=== PATIENT | male | born 1960 | race Caucasian/White ===

== ENCOUNTER 2017-06-07 21:12 | Observation (INO) | payer OTHER ==
--- NOTE | 2017-06-07 21:21 | Emergency Department Record ---
History of Present Illness - General Chief Complaint: Chest Pain Stated Complaint: CHEST PAIN,JAW PAIN Time Seen by Provider: 06/07/17 21:13 Source: Patient Mode of Arrival: Ambulatory Limitations: No limitations - History of Present Illness Initial Comments: 57 yo male presents with tightnes of the chest. The tightness radiated to the neck /throat area. The feeling is currently gone. The tightness came on at rest tonight. It initially started around 8pm. He felt a little nausea and mild shortness of breath. No back pain. No leg edema. He had similar symptoms that were brief on Tuesday. No know CAD. He had a stress test many years ago. His sister of an [place] at 42. He has HTN and diet controlled elevated cholesterol due to not able to tolerated cholesterol medications. PCP Kelly. CHAVEZ Complaint: Chest pain -: Hour(s) Onset: During rest Pain Location: Substernal Pain Radiation: Jaw/teeth Quality: Tightness Consistency: Intermittent Improves With: Rest Worsens With: Nothing Anginal Symptoms: Dyspnea Treatments Prior to Arrival: None - Related Data Allergies Allergy/AdvReac Type Severity Reaction Status Date / Time No Known Allergies Allergy Unverified 06/24/16 19:13 Review of Systems Constitutional: Denies: Chills, Night sweats, Weakness Eyes: Denies: Eye discharge, Eye pain, Photophobia, Vision change ENT: Reports: Throat pain. Denies: Congestion, Dental pain, Ear pain, Epistaxis Respiratory: Denies: Cough, Dyspnea, Hemoptysis, Stridor, Wheezes Cardiovascular: Reports: Chest pain (tightness). Denies: Edema, Palpitations, Syncope Endocrine: Denies: Fatigue, Polydipsia, Polyuria Gastrointestinal: Denies: Abdominal pain, Diarrhea, Nausea, Vomiting Genitourinary: Denies: Dysuria, Frequency, Hematuria, Urgency Musculoskeletal: Denies: Arthralgia, Back pain, Joint swelling, Myalgia, Neck pain Skin: Denies: Bruising, Change in color, Rash Neurological: Denies: Confusion, Headache, Numbness, Weakness Psychiatric: Reports: Anxiety Hematological/Lymphatic: Denies: Blood Clots, Easy bleeding, Easy bruising, Swollen glands Past Medical History - SOCIAL HISTORY Smoking Status: Never smoker - RESPIRATORY Hx Respiratory Disorders: Yes Hx Bronchitis: Yes - CARDIOVASCULAR Hx Cardio Disorders: No Hx Hypertension: Yes - NEURO Hx Neuro Disorders: No - GI Hx Diverticulitis: Yes - Hx Genitourinary Disorders: No - ENDOCRINE Hx Endocrine Disorders: No Hx Diabetes: No Hx Thyroid Disease: No - MUSCULOSKELETAL Hx Musculoskeletal Disorders: No - PSYCH Hx Anxiety: Yes - HEMATOLOGY/ONCOLOGY Hx Hematology/Oncology Disorders: No Family Medical History Hx Cancer: Father, Mother Hx Diabetes: Mother Hx HTN: Father Physical Exam - General General Appearance: Alert, Oriented x3, Cooperative, No acute distress Limitations: No limitations - Head Head exam: Normal inspection - Eye Eye exam: Normal appearance, PERRL. negative: Conjunctival injection, Scleral icterus - ENT ENT exam: Normal exam, Mucous membranes moist Ear exam: Normal external inspection Nasal Exam: Normal inspection Mouth exam: Normal external inspection - Neck Neck exam: Normal inspection, Full ROM. negative: Tenderness - Respiratory Respiratory exam: Normal lung sounds bilaterally. negative: Respiratory distress, Rhonchi, Stridor, Wheezes - Cardiovascular Cardiovascular Exam: Regular rate, Normal rhythm, Normal heart sounds Peripheral Pulses: 2+: Radial (R), Radial (L) - GI/Abdominal GI/Abdominal exam: Soft. negative: Tenderness - Rectal Rectal exam: Deferred - exam: Deferred - Extremities Extremities exam: Normal inspection, Full ROM, Normal capillary refill. negative: Tenderness - Back Back exam: Reports: Normal inspection, Full ROM. Denies: Muscle spasm, Rash noted, Tenderness - Neurological Neurological exam: Alert, Normal gait, Oriented X3 - Psychiatric Psychiatric exam: Normal affect, Normal mood - Skin Skin exam: Dry, Intact, Normal color, Warm Course - Reevaluation(s) Reevaluation #1: 06/07/17 21:18 EKG 21:14 NSR rate 93 intervals normal, axis left, No ST changes. No changes from 1614 06/07/17 21:21 06/07/17 21:45 The labs were reviewed No acute changes of the CBC or Troponin Mild increase in glucose at 153 06/07/17 21:52 The CXR was reviewed Prelim read is NAD OBs orders for serial enzymes written Medical Decision Making - Lab Data Result diagrams: 06/07/17 21:20 06/07/17 21:20 Disposition Disposition: Admit Clinical Impression: Chest pain Qualifiers: Chest pain type: unspecified Qualified Code(s): R07.9 - Chest pain, unspecified Disposition: Still a Patient at [facility] Decision to Admit: Admit from ER Decision to Admit Date: 06/07/17 Decision to Admit Time: 21:46 Condition: (2) Stable Time of Disposition: 21:46 Quality - Quality Measures Quality Measures: N/A - Blood Pressure Screening Does Patient Have Any of the Following: Active Dx of HTN Blood Pressure Classification: Hypertensive Reading Systolic Measurement: 122 Diastolic Measurement: 90 Screening for High Blood Pressure: < Pre-Hypertensive BP, F/U Documented > [ [id number]] Pre-Hypertensive Follow-up Interventions: Referral to alternative/primary care provider.
[2017-06-07 21:25] LABS: BASO % 0.8 % (0-6); EOS % 4.3 % (0-6); GRAN % 48.2 % (47-80); HEMATOCRIT 48.2 % (42.0-52.0); HEMOGLOBIN 16.3 gm/dl (14.0-18.0); LYMPH % 33.3 % (16-45); MEAN CELL VOLUME 85.6 fl (81-97); MEAN CORPUSCULAR HGB CONC 33.8 g/dl (32-36); MEAN PLATELET VOLUME 10.6 fl (7.4-10.4); MONO % 13.4 % (0-9); PLATELET COUNT 253 K/uL (130-400); RED BLOOD COUNT 5.63 M/uL (4.40-5.70); RED CELL DISTRIBUTION WIDTH 13.6 % (11.5-14.5); WHITE BLOOD COUNT W/O DIFF 7.6 K/uL (4.2-12.2)
[2017-06-07] MEDS ORDERED: ASPIRIN 81 MG CHEWABLE TABLET PO ONE (21:30)
[2017-06-07] MEDS ORDERED: LORAZEPAM 0.5 MG TABLET PO ONE (21:30)
[2017-06-07 21:33] LABS: BLOOD UREA NITROGEN 30 mg/dL (6-20); CREATININE 1.2 mg/dL (0.7-1.2); EST GLOMERULAR FILTRATION RATE > 60 mL/min
[2017-06-07 21:36] LABS: GLUCOSE,RANDOM 153 mg/dL (74-109)
[2017-06-07 21:39] LABS: CREATINE PHOSPHOKINASE 122 U/L (39-308)
[2017-06-07 21:41] LABS: CKMB 2.8 ng/mL (<6.73)
[2017-06-07] MEDS ORDERED: NITROGLYCERIN 0.4MG SL TABLET #25 BTL SL PRN (22:45)
[2017-06-07] MEDS ORDERED: AL HYDROX/MAG HYDROX 30ML UD PO PRN (22:45)
[2017-06-07] MEDS ORDERED: METOPROLOL TART 50 MG TABLET PO SCH ×2 (22:45→23:32)
[2017-06-07] MEDS ORDERED: ACETAMINOPHEN 500 MG TABLET PO PRN (22:45)
[2017-06-07] MEDS ORDERED: LORAZEPAM 0.5 MG TABLET PO PRN (22:53)
--- NOTE | 2017-06-08 07:38 | RADIOLOGY REPORT ---
EXAM: CHEST, TWO VIEWS HISTORY: CHEST PAIN. TECHNIQUE: Frontal and lateral views of the chest were obtained. Comparison: None. FINDINGS: The heart size is normal. Equivocal atelectasis or infiltrate in the left lung base. The lungs are otherwise clear. No pneumothorax. IMPRESSION: EQUIVOCAL ATELECTASIS RO INFILTRATE IN THE LEFT LUNG BASE. JOB NUMBER: [id number] MTDD
[2017-06-08] MEDS ORDERED: ASPIRIN 325 MG TAB ENTERIC-COATED PO SCH (10:00)
--- NOTE | 2017-06-08 12:21 | History and Physical Report ---
DATE OF ADMISSION: 06/07/2017 CHIEF COMPLAINT: Jaw pain, panic attack. HISTORY OF PRESENT ILLNESS: This 57-year-old male presented to the emergency department and stated about 8:00 p.m. he was stressing about work and the holiday stresses, and he developed some jaw pain that lasted for 2 minutes. He states the pain was bilateral in the TMJ joint parts of both sides of his jaw. He went into a panic attack at that point, and he started looking on the Internet what this could be. He felt it could be his heart, so he came in to the emergency department for evaluation. He denied any upsets like nausea or vomiting. He does have anxiety. He said his stomach was a little bit upset due to the anxiety. He has reported other episodes of nausea with anxiety in the past. Upon arrival, he was evaluated by Dr. Soto and admitted to the hospital for serial cardiac enzymes and serial EKGs as an observation patient. Currently, he has no jaw pain when I evaluate him on 7:30 a.m. on 06/08/2017. No chest pain. And he had a reasonable night. He had two sets of EKGs, which revealed no acute changes. His cardiac enzymes, a second set is pending at this time. The first set was normal. PAST MEDICAL HISTORY: Hypertension, hypercholesterolemia, but he could not tolerate the statins. He is doing diet control at this time. He has GERD and anxiety and has panic attacks. He also has had a history of diverticulitis and had surgery on his colon for the diverticulitis. 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 CURRENT MEDICATIONS: On admission: Metoprolol tartrate 50 mg b.i.d. and lorazepam 1 mg at bedtime and p.r.n. ALLERGIES: No known allergies. FAMILY HISTORY: Sister had an [place] at 40. Father and mother had cancer. Mother had diabetes. Brothers and sisters have diabetes. Heart disease in mother, brother, and sister. Father has hypertension and respiratory problems. The sister of an [place] at 42. He has had no coronary artery disease. He had a stress test about [address] Valenzuela, which was negative, for a similar episode. SOCIAL HISTORY: No cigarette use. No alcohol use. No drug use. SYSTEMS REVIEW: HEENT: Did have a little congestion, sinus allergy-type symptoms in the last week. No sore throat. No cough. Cardiovascular: See Chief Complaint. He had some jaw pain. No anterior chest pain, a little indigestion and anxiety. No palpitations. No dyspnea or orthopnea. Respiratory: No cough, cold, or congestion. No smoking history. Gastrointestinal: A little bit of upset stomach when he had the panic attack. No anxiety or nausea now. No vomiting or diarrhea. Genitourinary: No dysuria, hematuria, frequency, or burning on urination. Musculoskeletal: No joint or bone abnormalities. Neurologic: No CVA, paralysis, or paresthesias. Endocrine: No diabetes or thyroid disease. Integument: No rash, ulcer, or change in moles or skin. PHYSICAL EXAMINATION: VITAL SIGNS: Height 5 feet 10 inches. Weight 215 pounds. Temperature 97.7. Pulse 68. Blood pressure 130/85. Respiratory rate 16. Pulse ox 97% on room air. HEENT: Pupils equal, round, and reactive to light and accommodation. Extraocular muscles intact. Throat is clear. Nose is clear. Tympanic membranes are clear. Neck supple. No jugular venous distention. No hepatojugular reflex. No carotid bruits. Thyroid is smooth. When he moves his jaw up and down he has no discomfort in his jaw. He has no jaw pain at this point. LUNGS: Clear to auscultation and percussion. HEART: Regular rate and rhythm without murmurs, clicks, rubs, or gallops. ABDOMEN: Soft, nontender. No hepatosplenomegaly. No mass. No tenderness. Bowel sounds active. No bruits. EXTREMITIES: No pitting edema. No cyanosis, no clubbing. Full range of motion. Peripheral pulses good. BREASTS: Normal male breasts. RECTAL: Deferred. GENITOURINARY: Deferred. NEUROLOGIC: Cranial nerves 2 through 12 intact. No gross defects. Sensation normal. Strength normal. Deep tendon reflexes normal bilaterally. Babinski is negative. He does have an underlying anxiety disorder, and he has panic attacks periodically. MENTAL STATUS: Alert and oriented x3. IMPRESSION: 1. Jaw pain for 2 minutes. 2. Panic attack. 3. Rule out atypical chest pain. PLAN: We will evaluate the second set of cardiac enzymes, which were drawn at 6:[address] Serrato consult for a possible stress test. [facility]
[2017-06-08] MEDS ORDERED: RANITIDINE HCL 150 MG TABLET PO SCH (12:30)
--- NOTE | 2017-06-08 14:15 | Discharge Note ---
VTE H&P Assessment - Risk for VTE Risk for VTE: No Risk Level: Very Low Risk Assessment Date: 06/08/17 Risk Assessment Time: 14:15 VTE Orders Placed or Will Be Placed: No VTE Reason for No Prophylaxis: Not Indicated Discharge Medications - Discharge Medications Home Medications: Ambulatory Orders Lorazepam 1 tab PO QHS PRN 11/09/13 [Last Taken 06/07/17] Metoprolol Tartrate 1 tab PO BID 11/09/13 [Last Taken 06/07/17] Discharge Note - Date Date of Discharge Note: 06/08/17 Condition: (2) Stable Additional Instructions: follow up with Dr. Hammond on tuesdayjun 13 Forms: Patient Portal Access Activity at Discharge: Increase Activity as Tolerated Diet at Discharge: Regular Diet
--- NOTE | 2017-06-08 15:46 | Medical Records Consult ---
DATE OF CONSULTATION: 06/08/17 INDICATION: CHEST PAIN. HISTORY: A 57-year-old male with a chronic history of anxiety, was at home at rest and had tightness in his neck/throat area. He went on the internet it stated that he was probably having a heart attack so he came to the Emergency Department. There was no exertional component. He has had this on and off over the years when he gets anxious. He is under a lot of stress at work. He has a history of elevated cholesterol and can't take statins. His sister of an [place] at 42. His last cardiac work-up, he states, was over five years ago for similar symptoms. PAST MEDICAL HISTORY: Anxiety. GERD. ALLERGIES: NONE LISTED. HOME MEDICATIONS ARE FOLLOWS: Ativan 1 mg p.o. prn anxiety Metoprolol Tartrate 50 mg p.o. b.i.d. Aspirin 324 mg FAMILY HISTORY: Sister of an [place] at 41. REVIEW OF SYSTEMS: GENERAL: No fevers, chills, night sweats. HEENT: No acute hearing/vision changes. CARDIOVASCULAR: Chest pain, as above, radiating to the neck. No palpitations. No syncope. PULMONARY: No cough, hemoptysis. GI: No nausea or vomiting. No tarry or bloody stools. Positive for chronic gastroesophageal reflux disease. : No dysuria or hematuria. ENDOCRINE: Denies any diabetes/thyroid history. PSYCH: Positive for anxiety. TOBACCO HISTORY: Never smoked. No alcohol. No illicit drug use. PHYSICAL EXAM: VITAL SIGNS: Temperature 97.7, pulse 68, blood pressure 130/85, O2 sats 95% on room air. EKG shows sinus rhythm. Baseline wander. Heart rate 93. GENERAL: Alert and in no apparent distress. HEENT: Normocephalic/atraumatic. NECK: Supple. No JVD. No carotid bruits. CARDIOVASCULAR: Regular rhythm. No murmurs, rubs, gallops. PULMONARY: Clear to auscultation. No accessory muscle use. ABDOMEN: Obese. Nontender. Positive bowel sounds. EXTREMITIES: No edema. Radial and pedal pulses are intact. No bruits were appreciated. Treadmill was negative to approximately 10 METs with no chest discomfort or any other symptoms, which he presented with. IMPRESSION: 1. ATYPICAL CHEST PAIN LIKELY SECONDARY TO ANXIETY WITH NEGATIVE STRESS TEST. 2. ANXIETY WORK-UP AND MANAGEMENT PER PRIMARY CARE. 3. WOULD RECOMMEND LIPID MANAGEMENT PER GUIDELINES. JOB NUMBER: [id number] MTDD
--- NOTE | 2017-06-09 12:11 | Discharge Summary ---
DATE OF DISCHARGE: 06/08/2017 DISCHARGE DIAGNOSES: 1. Jaw pain. 2. Panic attack. 3. Myocardial infarction ruled out. 4. Anxiety. ATTENDING PHYSICIAN: Javier Hammond D.O. REASON FOR HOSPITALIZATION: Jaw pain and panic attack. HISTORY OF PRESENT ILLNESS: This 57-year-old male presented to the emergency department about 8:00 p.m. last night. He was stressing about work and the holiday stresses. He developed some jaw pain that lasted for 2 minutes. He then had a panic attack. He went to the internet and looked at the internet, and he became very concerned and came to the ER for evaluation. He was seen by Dr. Soto and admitted to the hospital for serial cardiac enzymes, serial EKGs, and observation, and a stress test, if necessary. SIGNIFICANT FINDINGS: Cardiac enzymes x2 were negative. A third set is pending. EKGs x2 are negative. Stress test with Dr. Serrato was negative at [address] Serrato. HOSPITAL COURSE: Unremarkable. He had no chest pain in the emergency department or on the floor. CONDITION AT DISCHARGE: Good. He is slightly anxious. DISCHARGE INSTRUCTIONS: Follow up with Dr. Hammond on Tuesday. Continue his home medications of metoprolol tartrate 50 mg b.i.d., lorazepam 1 mg at bedtime. We talked about possibly starting a long-acting antianxiety medication. We will start that in the office. Also, we talked about a cholesterol medication, but he could not remember which cholesterol medications he had troubles with. We will try another medication, and we will start that in the office on Tuesday when he comes in to the office. Use the Zantac for GERD daily until he sees me in the office. MOHAMUD
--- NOTE | 2017-06-09 18:34 | Stress Test Report ---
DATE OF TEST: 06/08/17 INDICATION: CHEST PAIN. ORDERING PHYSICIAN: DR. HAGEN BASELINE EKG: There were three pre-exercise EKGs. One has a heart rate of 107 beats per minute, one 145 beats per minute, and one 105 beats per minute, all sinus tachycardia. Interpretation: Sinus tachycardia. Nonspecific ST/T wave changes. Resting heart rate 105. Resting blood pressure 118/89. DESCRIPTION: The patient exercised on a motorized treadmill for 9 minutes and 38 seconds achieving a peak heart rate of 171 beats per minute, which was greater than 85% of the maximum age predicted heart rate. Peak blood pressure was 176/87. Continuous ECG monitoring revealed no EKG changes that met diagnostic criteria for ischemia. There appeared to be rare PVCs during recovery. The patient had no complaints of chest discomfort, neck discomfort, or any other symptoms that he presented with in the Emergency Department. IMPRESSION: 1. NEGATIVE EXERCISE STRESS TEST TO APPROXIMATELY 10 METS. 2. NO CHEST DISCOMFORT. 3. RARE PVCs. 4. UNDERLYING SINUS TACHYCARDIA AT REST. 5. CLINICAL CORRELATION RECOMMENDED. cc: Dr. Hagen JOB NUMBER: [id number] MTDD
== END 2017-06-08 14:55 | disposition home or self-care (01) ==
LOC: ER 21:12 → MEDSURG 22:22
PROVIDERS: ADMIT Emergency Medicine; ATTEND Emergency Medicine
DX: R68.84 Jaw pain (principal); R07.89 Other chest pain; F41.0 Panic disorder [episodic paroxysmal anxiety]; E78.00 Pure hypercholesterolemia, unspecified; I10 Essential (primary) hypertension
CPT/HCPCS: 99285 ×2; 82550; 85025; 82553; 80048; 84484 ×2; 71020; 94760; 93005 ×2; 93017; 93010; G0378 ×2